=== PATIENT | male | born 2000 | race Caucasian/White ===

== ENCOUNTER 2022-04-30 17:21 | Emergency (ER) | payer SELFPAY ==
[~2022-04-30] VITALS: Ht 172.7 cm; Wt 97.0 kg
[2022-04-30 17:40] VITALS: BP 131/71
== END 2022-04-30 23:11 | disposition left against medical advice (07) ==
LOC: ER 17:21
DX: Z53.21 Procedure and treatment not carried out due to patient leaving prior to being seen by health care provider (principal)